=== PATIENT | male | born 1950 | race African-American/Black ===

== ENCOUNTER 2018-03-31 10:15 | Inpatient (IN) | payer MEDICAID, MEDICARE ==
[~2018-03-31] VITALS: Ht 182.9 cm; Wt 99.8 kg
[~2018-03-31 10:15] MED LIST: ASPI-1158 PO; ATEN-42 MT; GEMF600T4 MT; HYDR-2510 PO
[2018-03-31 11:45] LABS: CLARITY URINE TURBID (CLEAR); COLOR URINE YELLOW (YELLOW); KETONES URINE NEGATIVE (NEGATIVE); LEUKOCYTE ESTERASE URINE 3+ (NEGATIVE); NITRITE URINE NEGATIVE (NEGATIVE); OCCULT BLOOD URINE 2+ (NEGATIVE); PROTEIN URINE 2+ (NEGATIVE); SPECIFIC GRAVITY URINE 1.012 (1.005-1.030); UROBILINOGEN URINE 0.2 E.U./dL (0.2-1.0)
[2018-03-31] MEDS ORDERED: MORPHINE SULFATE 4 MG/ML CPJ (NOT FOR IM USE) IV STA (11:51)
[2018-03-31] MEDS ORDERED: ONDANSETRON HCL 4MG/2ML INJ IV STA (11:51)
[2018-03-31] MEDS ORDERED: SODIUM CHLORIDE 0.9% 1000ML BAG (SEPSIS BOLUS) IV ONE (12:00)
[2018-03-31] MEDS ORDERED: CEFTRIAXONE 1 G PREMIX 50 ML IV ONE (12:00)
[2018-03-31 12:53] LABS: HEMATOCRIT. 39.9 % (42.0-52.0); HEMOGLOBIN. 13.8 g/dL (14.0-18.0); MEAN CORPUSCULAR HEMOGLOBIN 31.5 pg (28.0-32.0); MEAN CORPUSCULAR VOLUME 90.9 fL (80.0-94.0); MEAN PLATELET VOLUME 9.5 fl (7.4-10.4); PLATELET 182 x1000/uL (130-400); RED BLOOD CELL COUNT 4.39 mill/uL (4.7-6.1); RED CELL DISTRIBUTION WIDTH 13.4 % (11.6-14.6)
[2018-03-31 12:59] LABS: CHLORIDE 93 mEq/L (98-107)
[2018-03-31] MEDS ORDERED: FUROSEMIDE 20MG/2ML VIAL IVP ONE (13:00)
[2018-03-31 13:03] LABS: PARTIAL THROMBOPLASTIN TIME 33.8 sec (23.4-31.0); PROTHROMBIN TIME 10.4 sec (9.1-11.1)
[2018-03-31 13:31] LABS: PLATELET ESTIMATE NORMAL
[2018-03-31] MEDS ORDERED: POTASSIUM CHLORIDE 20MEQ TABLET SR PO ONE (14:15)
[2018-03-31] MEDS ORDERED: LEVOFLOXACIN 250MG PREMIX 50 ML IV ONE (14:45)
[2018-03-31] MEDS ORDERED: ONDANSETRON HCL 4MG/2ML INJ IV PRN (15:30)
[2018-03-31] MEDS ORDERED: DEXTROSE 50% WATER 50ML SYRINGE IV PRN (15:30)
[2018-03-31] MEDS ORDERED: AMLODIPINE 5MG TABLET PO NR (15:44)
[2018-03-31 16:42] VITALS: BP 147/76
[2018-03-31] MEDS: INSULIN LISPRO 100 UNITS/ML SUBCUT SCH ×2 (17:45→21:00)
[2018-03-31] MEDS: BLOOD SUGAR DIAGNOSTIC STRIP TEST SCH ×2 (17:45→21:00)
[2018-03-31 18:00] VITALS: BP 123/83
[2018-03-31] MEDS: SODIUM CHLORIDE 0.9% 1,000 ML IV SCH (18:16)
[2018-03-31] MEDS: HYDROCODONE/ACETAMINOPHEN 5/325MG TABLET PO PRN (18:26)
[2018-03-31] MEDS: ZOLPIDEM TARTRATE 5MG TABLET PO PRN (21:16)
[2018-03-31] MEDS: AMLODIPINE 5MG TABLET PO SCH (21:17)
[2018-03-31] MEDS: ENOXAPARIN 30MG/0.3ML SYR SUBCUT SCH (21:26)
[2018-03-31 22:00] VITALS: BP 138/59
[2018-04-01] VITALS (13 sets, daily range): BP systolic 103–164; BP diastolic 59–85
[2018-04-01] MEDS: SODIUM CHLORIDE 0.9% 1,000 ML IV SCH ×2 (02:12→16:27)
[2018-04-01] MEDS: HYDROCODONE/ACETAMINOPHEN 5/325MG TABLET PO PRN ×3 (06:23→18:47)
[2018-04-01] MEDS: ACETAMINOPHEN 325MG TABLET PO PRN ×2 (06:24→20:44)
[2018-04-01 06:34] LABS: HEMATOCRIT. 37.1 % (42.0-52.0); HEMOGLOBIN. 12.6 g/dL (14.0-18.0); MEAN CORPUSCULAR HEMOGLOBIN 30.8 pg (28.0-32.0); MEAN CORPUSCULAR VOLUME 90.8 fL (80.0-94.0); MEAN PLATELET VOLUME 9.2 fl (7.4-10.4); PLATELET 190 x1000/uL (130-400); RED BLOOD CELL COUNT 4.08 mill/uL (4.7-6.1); RED CELL DISTRIBUTION WIDTH 13.5 % (11.6-14.6)
[2018-04-01] MEDS: BLOOD SUGAR DIAGNOSTIC STRIP TEST SCH ×4 (07:30→20:45)
[2018-04-01] MEDS: INSULIN LISPRO 100 UNITS/ML SUBCUT SCH ×4 (08:00→21:00)
[2018-04-01] MEDS: ENOXAPARIN 30MG/0.3ML SYR SUBCUT SCH ×2 (09:38→20:45)
[2018-04-01] MEDS: AMLODIPINE 5MG TABLET PO SCH ×2 (09:39→20:44)
[2018-04-01 09:49] LABS: PLATELET ESTIMATE NORMAL
[2018-04-01] MEDS ORDERED: CEFTRIAXONE 1 G PREMIX 50 ML IV SCH (12:00)
[2018-04-01] MEDS: FUROSEMIDE 40MG TABLET PO SCH (17:29)
[2018-04-01] MEDS: ZOLPIDEM TARTRATE 5MG TABLET PO PRN (20:44)
[2018-04-02] VITALS (9 sets, daily range): BP systolic 124–152; BP diastolic 38–82
[2018-04-02] MEDS: HYDROCODONE/ACETAMINOPHEN 5/325MG TABLET PO PRN ×2 (02:54→06:23)
[2018-04-02 06:09] LABS: BASOPHILS % 0.2 % (0.0-2.0); EOSINOPHILS % 0.8 % (0.0-5.0); HEMATOCRIT. 37.1 % (42.0-52.0); HEMOGLOBIN. 12.9 g/dL (14.0-18.0); LYMPHOCYTES % 13.3 % (20.0-50.0); MEAN CORPUSCULAR HEMOGLOBIN 31.7 pg (28.0-32.0); MEAN CORPUSCULAR VOLUME 91.4 fL (80.0-94.0); MONOCYTES % 8.1 % (2.0-8.0); NEUTROPHILS % 77.6 % (40.0-76.0); PLATELET 225 x1000/uL (130-400); RED BLOOD CELL COUNT 4.06 mill/uL (4.7-6.1); RED CELL DISTRIBUTION WIDTH 13.5 % (11.6-14.6)
[2018-04-02] MEDS ORDERED: HYDROCODONE/ACETAMINOPHEN 5/325MG TABLET PO PRN (06:15)
[2018-04-02] MEDS: BLOOD SUGAR DIAGNOSTIC STRIP TEST SCH ×2 (06:23→13:12)
[2018-04-02] MEDS: SODIUM CHLORIDE 0.9% 1,000 ML IV SCH (06:28)
[2018-04-02 06:44] LABS: CHLORIDE 101 mEq/L (98-107)
[2018-04-02] MEDS: INSULIN LISPRO 100 UNITS/ML SUBCUT SCH ×2 (07:58→13:00)
[2018-04-02] MEDS: FUROSEMIDE 40MG TABLET PO SCH (08:01)
[2018-04-02] MEDS: AMLODIPINE 5MG TABLET PO SCH (08:01)
[2018-04-02] MEDS: ENOXAPARIN 30MG/0.3ML SYR SUBCUT SCH (08:01)
[2018-04-02] MEDS ORDERED: CEFTRIAXONE 1 G PREMIX 50 ML IV SCH (12:30)
== END 2018-04-02 15:50 | disposition home or self-care (01) | DRG 871 ==
LOC: ER 11:08 → 5EST 14:33 → EDBEDREQ 14:33 → ENRESERV 15:49
PROVIDERS: ADMIT Internal Medicine; ATTEND Internal Medicine
DX: A41.51 Sepsis due to Escherichia coli [E. coli] (principal); I50.43 Acute on chronic combined systolic (congestive) and diastolic (congestive) heart failure; N17.0 Acute kidney failure with tubular necrosis; R65.21 Severe sepsis with septic shock; N39.0 Urinary tract infection, site not specified; E87.1 Hypo-osmolality and hyponatremia; E44.0 Moderate protein-calorie malnutrition; I42.9 Cardiomyopathy, unspecified; E87.6 Hypokalemia; E78.5 Hyperlipidemia, unspecified; M47.892 Other spondylosis, cervical region; E11.9 Type 2 diabetes mellitus without complications; I11.0 Hypertensive heart disease with heart failure; J32.0 Chronic maxillary sinusitis; M48.02 Spinal stenosis, cervical region; E87.8 Other disorders of electrolyte and fluid balance, not elsewhere classified; N20.0 Calculus of kidney; Z79.82 Long term (current) use of aspirin; Z79.899 Other long term (current) drug therapy; Z90.49 Acquired absence of other specified parts of digestive tract; Z68.29 Body mass index [BMI] 29.0-29.9, adult
CPT/HCPCS: 36415; 71045; 74176; 80048; 82962; 83036; 83605; 83880; 84145; 84484; 86850; 86900; 87077; 87186; 93005; 93306; 93970; 96365; 96366; 96375; 99291; J0696; J1650; J1940; J1956; J2270; J2405; J7030; J7050

== ENCOUNTER 2020-09-12 16:43 | Emergency (ER) | payer MEDICARE, OTHER ==
[~2020-09-12] VITALS: Ht 182.9 cm; Wt 100.0 kg
[~2020-09-12 16:43] MED LIST changes: -ASPI-1158 PO; +ASPI-1406 PO; -GEMF600T4 MT; +GEMF600T90 MT; -HYDR-2510 PO
[2020-09-12 17:55] LABS: CLARITY URINE CLEAR (CLEAR); COLOR URINE YELLOW (YELLOW); KETONES URINE NEGATIVE (NEGATIVE); LEUKOCYTE ESTERASE URINE 2+ (NEGATIVE); NITRITE URINE NEGATIVE (NEGATIVE); OCCULT BLOOD URINE NEGATIVE (NEGATIVE); PH URINE 6.5 (4.5-8.0); PROTEIN URINE NEGATIVE (NEGATIVE); SPECIFIC GRAVITY URINE 1.015 (1.005-1.030); UROBILINOGEN URINE 0.2 E.U./dL (0.2-1.0)
[2020-09-12] MEDS ORDERED: CIPR-263 MT (18:54)
[2020-09-12 19:02] VITALS: BP 140/80
== END 2020-09-12 20:00 | disposition home or self-care (01) ==
LOC: ER 19:38
DX: N30.90 Cystitis, unspecified without hematuria (principal); E78.00 Pure hypercholesterolemia, unspecified; I11.0 Hypertensive heart disease with heart failure; I50.9 Heart failure, unspecified; Z90.49 Acquired absence of other specified parts of digestive tract
CPT/HCPCS: 81003; 99282; A4315

== ENCOUNTER 2021-02-02 08:23 | Inpatient (IN) | payer MEDICARE ==
[~2021-02-02] VITALS: Ht 182.9 cm; Wt 100.0 kg
[~2021-02-02 08:23] MED LIST changes: +CIPR-263 MT
[2021-02-02] MEDS ORDERED: MORPHINE SULFATE 4 MG/ML CPJ (NOT FOR IM USE) IV STA (08:53)
[2021-02-02] MEDS ORDERED: SODIUM CHLORIDE 0.9% 1,000 ML IV ONE (09:00)
[2021-02-02 10:10] LABS: BASOPHILS % 0.4 % (0.0-2.0); EOSINOPHILS % 1.8 % (0.0-5.0); HEMATOCRIT. 44.7 % (42.0-52.0); HEMOGLOBIN. 14.8 g/dL (14.0-18.0); LYMPHOCYTES % 40.2 % (20.0-50.0); MEAN CORPUSCULAR HEMOGLOBIN 30.6 pg (28.0-32.0); MEAN CORPUSCULAR VOLUME 92.6 fL (80.0-94.0); MEAN PLATELET VOLUME 8.2 fl (7.4-10.4); MONOCYTES % 9.3 % (2.0-8.0); NEUTROPHILS % 48.3 % (40.0-76.0); PLATELET 268 x1000/uL (130-400); RED BLOOD CELL COUNT 4.83 mill/uL (4.7-6.1); RED CELL DISTRIBUTION WIDTH 13.2 % (11.6-14.6)
[2021-02-02 10:18] LABS: CHLORIDE 102 mEq/L (98-107)
[2021-02-02 10:50] LABS: ETHANOL BLOOD < 10 mg/dL
[2021-02-02] MEDS ORDERED: IOHEXOL-300 100 ML BOTTLE ONE (11:07)
[2021-02-02] MEDS ORDERED: MORPHINE SULFATE 4 MG/ML CPJ (NOT FOR IM USE) IV ONE (11:45)
[2021-02-02] MEDS ORDERED: ONDANSETRON HCL 4MG/2ML INJ IV PRN (18:15)
[2021-02-02] MEDS ORDERED: IPRATROPIUM/ALBUTEROL 0.5-3(2.5)MG/3ML NEB HHN PRN (18:15)
[2021-02-02] MEDS ORDERED: LORAZEPAM 0.5MG TABLET PO PRN (18:15)
[2021-02-02] MEDS ORDERED: NALOXONE HCL 0.4MG/ML VIAL IV PRN (18:30)
[2021-02-02] MEDS: MORPHINE SULFATE 2 MG/ML CPJ (NOT FOR IM USE) IV PRN (21:28)
[2021-02-02 23:20] VITALS: BP 145/80
[2021-02-03] MEDS ORDERED: T3 PO (01:24)
[2021-02-03] MEDS ORDERED: HYDR25TA PO (01:24)
[2021-02-03 06:39] LABS: BASOPHILS % 0.4 % (0.0-2.0); EOSINOPHILS % 2.9 % (0.0-5.0); HEMATOCRIT. 42.9 % (42.0-52.0); HEMOGLOBIN. 14.3 g/dL (14.0-18.0); LYMPHOCYTES % 34.1 % (20.0-50.0); MEAN CORPUSCULAR HEMOGLOBIN 30.6 pg (28.0-32.0); MEAN CORPUSCULAR VOLUME 91.6 fL (80.0-94.0); MEAN PLATELET VOLUME 8.4 fl (7.4-10.4); MONOCYTES % 9.6 % (2.0-8.0); PLATELET 237 x1000/uL (130-400); RED BLOOD CELL COUNT 4.68 mill/uL (4.7-6.1)
[2021-02-03 06:58] LABS: CHLORIDE 104 mEq/L (98-107)
[2021-02-03 08:00] VITALS: BP 151/67
[2021-02-03 11:30] LABS: AMYLASE 82 IU/L (25-115)
[2021-02-03] MEDS: LACTATED RINGERS 1,000 ML IV SCH (11:47)
[2021-02-03] MEDS: TAMSULOSIN HCL 0.4MG SR CAPSULE PO SCH (11:47)
[2021-02-03 12:00] VITALS: BP 120/78
[2021-02-03] MEDS: MORPHINE SULFATE 2 MG/ML CPJ (NOT FOR IM USE) IV PRN ×2 (12:12→17:00)
[2021-02-03] MEDS: AMLODIPINE 2.5MG TABLET PO SCH (13:34)
[2021-02-03 16:00] VITALS: BP 152/76
[2021-02-03 20:00] VITALS: BP 172/76
[2021-02-04] VITALS: BP 145/71
[2021-02-04 04:00] VITALS: BP 151/70
[2021-02-04 07:59] LABS: BASOPHILS % 0.3 % (0.0-2.0); HEMATOCRIT. 43.1 % (42.0-52.0); HEMOGLOBIN. 14.7 g/dL (14.0-18.0); LYMPHOCYTES % 32.9 % (20.0-50.0); MEAN CORPUSCULAR HEMOGLOBIN 30.6 pg (28.0-32.0); MEAN CORPUSCULAR VOLUME 90.1 fL (80.0-94.0); MEAN PLATELET VOLUME 8.6 fl (7.4-10.4); NEUTROPHILS % 56.8 % (40.0-76.0); PLATELET 250 x1000/uL (130-400); RED BLOOD CELL COUNT 4.78 mill/uL (4.7-6.1); RED CELL DISTRIBUTION WIDTH 12.9 % (11.6-14.6)
[2021-02-04 08:00] VITALS: BP 155/89
[2021-02-04 08:04] LABS: CHLORIDE 104 mEq/L (98-107)
[2021-02-04 08:12] LABS: AMYLASE 54 IU/L (25-115)
[2021-02-04] MEDS: TAMSULOSIN HCL 0.4MG SR CAPSULE PO SCH (08:50)
[2021-02-04] MEDS: AMLODIPINE 2.5MG TABLET PO SCH (08:50)
[2021-02-04] MEDS: LACTATED RINGERS 1,000 ML IV SCH (08:57)
[2021-02-04] MEDS: MORPHINE SULFATE 2 MG/ML CPJ (NOT FOR IM USE) IV PRN (08:58)
[2021-02-04 12:00] VITALS: BP 165/74
[2021-02-04] MEDS ORDERED: TAMS-11 PO (13:24)
== END 2021-02-04 16:00 | disposition home or self-care (01) | DRG 440 ==
LOC: ER 08:23 → 8WST 16:43 → ENRESERV 18:05 → 8WST 23:03
PROVIDERS: ADMIT Internal Medicine; ATTEND Internal Medicine
DX: K85.90 Acute pancreatitis without necrosis or infection, unspecified (principal); K57.90 Diverticulosis of intestine, part unspecified, without perforation or abscess without bleeding; N20.0 Calculus of kidney; F17.210 Nicotine dependence, cigarettes, uncomplicated; K59.00 Constipation, unspecified; Z20.822 Contact with and (suspected) exposure to COVID-19; N40.0 Benign prostatic hyperplasia without lower urinary tract symptoms; I50.9 Heart failure, unspecified; E78.00 Pure hypercholesterolemia, unspecified; I11.0 Hypertensive heart disease with heart failure; Z90.49 Acquired absence of other specified parts of digestive tract; Z82.49 Family history of ischemic heart disease and other diseases of the circulatory system; Z79.899 Other long term (current) drug therapy; Z87.01 Personal history of pneumonia (recurrent); F10.10 Alcohol abuse, uncomplicated; Z71.41 Alcohol abuse counseling and surveillance of alcoholic
CPT/HCPCS: 36415; 74177; 80048; 80053; 80320; 82150; 83605; 84153; 85025; 87426; 93005; 99285; J2270; J2405; J7030; J7120; Q9967; G0103; G0480

== ENCOUNTER 2021-04-13 14:10 | Emergency (ER) | payer BC, MEDICARE ==
[~2021-04-13] VITALS: Ht 182.9 cm; Wt 97.0 kg
[~2021-04-13 14:10] MED LIST changes: -CIPR-263 MT; +HYDR25TA PO; +T3 PO; +TAMS-11 PO
[2021-04-13 14:52] VITALS: BP 159/75
[2021-04-13] MEDS ORDERED: T3 PO (14:52)
== END 2021-04-13 15:45 | disposition home or self-care (01) ==
LOC: ER 14:10
DX: M25.511 Pain in right shoulder (principal)
CPT/HCPCS: 73030; 99283

== ENCOUNTER 2021-11-02 11:07 | Inpatient (IN) | payer MEDICARE ==
[~2021-11-02] VITALS: Ht 182.9 cm; Wt 96.2 kg
[2021-11-02] MEDS ORDERED: ONDANSETRON HCL 4MG/2ML INJ IV STA (12:24)
[2021-11-02] MEDS ORDERED: MORPHINE SULFATE 4 MG/ML CPJ (NOT FOR IM USE) IV STA (12:24)
[2021-11-02] MEDS ORDERED: SODIUM CHLORIDE 0.9% 1,000 ML IV ONE (12:30)
[2021-11-02 13:27] LABS: BASOPHILS % 0.1 % (0.0-2.0); EOSINOPHILS % 0.2 % (0.0-5.0); HEMOGLOBIN. 14.3 g/dL (14.0-18.0); MEAN CORPUSCULAR HEMOGLOBIN 31.5 pg (28.0-32.0); MEAN CORPUSCULAR VOLUME 94.7 fL (80.0-94.0); MEAN PLATELET VOLUME 8.5 fl (7.4-10.4); NEUTROPHILS % 85.7 % (40.0-76.0); PLATELET 293 x1000/uL (130-400); RED BLOOD CELL COUNT 4.54 mill/uL (4.7-6.1)
[2021-11-02 13:35] LABS: CHLORIDE 96 mEq/L (98-107)
[2021-11-02] MEDS ORDERED: ASPIRIN 325MG EC TABLET PO ONE (16:00)
[2021-11-02] MEDS ORDERED: LEVOFLOXACIN 750MG PREMIX 150 ML IV ONE (16:00)
[2021-11-02] MEDS ORDERED: MORPHINE SULFATE 4 MG/ML CPJ (NOT FOR IM USE) IV ONE (16:15)
[2021-11-02] MEDS ORDERED: FUROSEMIDE 40MG/4ML VIAL IVP ONE (16:30)
[2021-11-02] MEDS ORDERED: DIPHENHYDRAMINE 50MG/ML VIAL IV PRN (17:15)
[2021-11-02] MEDS ORDERED: IPRATROPIUM/ALBUTEROL 0.5-3(2.5)MG/3ML NEB HHN PRN (17:15)
[2021-11-02] MEDS ORDERED: ACETAMINOPHEN 325MG TABLET PO PRN (17:15)
[2021-11-02] MEDS ORDERED: ONDANSETRON HCL 4MG/2ML INJ IV PRN (17:15)
[2021-11-02] MEDS ORDERED: CEFTRIAXONE 1 G PREMIX 50 ML IV SCH (17:30)
[2021-11-02] MEDS ORDERED: AZITHROMYCIN 500 MG TABLET PO NR ×2 (17:30→20:30)
[2021-11-02] MEDS ORDERED: CLONIDINE 0.1MG TABLET PO PRN (17:30)
[2021-11-02 17:31] LABS: CLARITY URINE CLEAR (CLEAR); COLOR URINE YELLOW (YELLOW); KETONES URINE NEGATIVE (NEGATIVE); LEUKOCYTE ESTERASE URINE 1+ (NEGATIVE); NITRITE URINE POSITIVE (NEGATIVE); OCCULT BLOOD URINE TRACE (NEGATIVE); PROTEIN URINE NEGATIVE (NEGATIVE); SPECIFIC GRAVITY URINE 1.007 (1.005-1.030); UROBILINOGEN URINE 0.2 E.U./dL (0.2-1.0)
[2021-11-02 20:00] VITALS: BP 110/68
[2021-11-02] MEDS: CEFTRIAXONE 1,000 MG in DEXTROSE 5% WATER 50 ML IV SCH (21:46)
[2021-11-02] MEDS: MORPHINE SULFATE 2 MG/ML CPJ (NOT FOR IM USE) IV PRN (21:57)
[2021-11-02 22:48] VITALS: BP 100/66
[2021-11-02] MEDS ORDERED: NALOXONE HCL 0.4MG/ML VIAL IV PRN (23:15)
[2021-11-03] VITALS: BP 134/69
[2021-11-03 04:00] VITALS: BP 126/65
[2021-11-03 08:00] VITALS: BP 127/69
[2021-11-03 08:50] LABS: HEMATOCRIT. 38.3 % (42.0-52.0); HEMOGLOBIN. 13.2 g/dL (14.0-18.0); MEAN CORPUSCULAR HEMOGLOBIN 32.1 pg (28.0-32.0); MEAN PLATELET VOLUME 8.5 fl (7.4-10.4); PLATELET 264 x1000/uL (130-400); RED BLOOD CELL COUNT 4.12 mill/uL (4.7-6.1); RED CELL DISTRIBUTION WIDTH 13.7 % (11.6-14.6)
[2021-11-03] MEDS: MORPHINE SULFATE 2 MG/ML CPJ (NOT FOR IM USE) IV PRN (08:57)
[2021-11-03 09:15] LABS: CHLORIDE 95 mEq/L (98-107)
[2021-11-03] MEDS ORDERED: LACTULOSE 20G/30ML UDC PO NR (11:15)
[2021-11-03] MEDS: MORPHINE SULFATE 4 MG/ML CPJ (NOT FOR IM USE) IV PRN (11:50)
[2021-11-03 11:56] VITALS: BP 151/82
[2021-11-03 13:43] LABS: PLATELET ESTIMATE NORMAL
[2021-11-03 16:00] VITALS: BP 125/60
[2021-11-03 20:30] VITALS: BP 106/61
[2021-11-03] MEDS: CEFTRIAXONE 1,000 MG in DEXTROSE 5% WATER 50 ML IV SCH (21:08)
[2021-11-04] VITALS: BP 110/66
[2021-11-04 04:00] VITALS: BP 136/54
[2021-11-04 08:00] VITALS: BP 146/71
[2021-11-04] MEDS ORDERED: NA PHOS,M-B/NA PHOS,DI-BA ENEMA 118ML PR NR ×2 (11:00→11:15)
[2021-11-04] MEDS ORDERED: NA PHOS,M-B/NA PHOS,DI-BA ENEMA 118ML PR ONE (11:00)
[2021-11-04] MEDS: MORPHINE SULFATE 4 MG/ML CPJ (NOT FOR IM USE) IV PRN ×2 (11:56→20:58)
[2021-11-04 12:00] VITALS: BP 158/70
[2021-11-04 16:00] VITALS: BP 146/72
[2021-11-04 20:00] VITALS: BP 141/72
[2021-11-04] MEDS: CEFTRIAXONE 1,000 MG in DEXTROSE 5% WATER 50 ML IV SCH (20:57)
[2021-11-05] VITALS: BP 148/70
[2021-11-05] MEDS: MORPHINE SULFATE 4 MG/ML CPJ (NOT FOR IM USE) IV PRN ×4 (02:37→19:03)
[2021-11-05 04:00] VITALS: BP 155/76
[2021-11-05 06:52] LABS: BASOPHILS % 0.1 % (0.0-2.0); EOSINOPHILS % 0.7 % (0.0-5.0); HEMATOCRIT. 38.2 % (42.0-52.0); HEMOGLOBIN. 12.9 g/dL (14.0-18.0); MEAN CORPUSCULAR HEMOGLOBIN 31.8 pg (28.0-32.0); MEAN CORPUSCULAR VOLUME 94.2 fL (80.0-94.0); MEAN PLATELET VOLUME 8.5 fl (7.4-10.4); MONOCYTES % 5.9 % (2.0-8.0); NEUTROPHILS % 80.3 % (40.0-76.0); PLATELET 267 x1000/uL (130-400); RED BLOOD CELL COUNT 4.06 mill/uL (4.7-6.1); RED CELL DISTRIBUTION WIDTH 13.3 % (11.6-14.6)
[2021-11-05 07:51] LABS: CHLORIDE 96 mEq/L (98-107)
[2021-11-05 08:00] VITALS: BP 128/56
[2021-11-05 12:00] VITALS: BP 164/82
[2021-11-05] MEDS: FUROSEMIDE 40MG/4ML VIAL IVP SCH (12:56)
[2021-11-05] MEDS: MEROPENEM 1,000 MG in SODIUM CHLORIDE 0.9% 100 ML IV SCH ×2 (15:33→22:11)
[2021-11-05 16:00] VITALS: BP 139/64
[2021-11-05 20:00] VITALS: BP 136/77
[2021-11-06] VITALS: BP 132/75
[2021-11-06 04:00] VITALS: BP 159/70
[2021-11-06 04:07] LABS: NEISSERIA GONORRHOEAE NAA Negative (Negative)
[2021-11-06] MEDS: MORPHINE SULFATE 4 MG/ML CPJ (NOT FOR IM USE) IV PRN ×3 (04:44→23:01)
[2021-11-06] MEDS: MEROPENEM 1,000 MG in SODIUM CHLORIDE 0.9% 100 ML IV SCH ×3 (05:38→21:56)
[2021-11-06 06:26] LABS: BASOPHILS % 0.2 % (0.0-2.0); EOSINOPHILS % 1.6 % (0.0-5.0); HEMATOCRIT. 37.9 % (42.0-52.0); HEMOGLOBIN. 12.7 g/dL (14.0-18.0); LYMPHOCYTES % 14.8 % (20.0-50.0); MEAN CORPUSCULAR HEMOGLOBIN 31.4 pg (28.0-32.0); MEAN CORPUSCULAR VOLUME 93.9 fL (80.0-94.0); MEAN PLATELET VOLUME 8.9 fl (7.4-10.4); MONOCYTES % 8.9 % (2.0-8.0); NEUTROPHILS % 74.5 % (40.0-76.0); PLATELET 303 x1000/uL (130-400); RED BLOOD CELL COUNT 4.03 mill/uL (4.7-6.1); RED CELL DISTRIBUTION WIDTH 13.3 % (11.6-14.6)
[2021-11-06 06:43] LABS: CHLORIDE 96 mEq/L (98-107)
[2021-11-06 08:00] VITALS: BP 143/69
[2021-11-06] MEDS ORDERED: POTASSIUM CHLORIDE 20MEQ TABLET SR PO NR (09:00)
[2021-11-06] MEDS: FUROSEMIDE 40MG/4ML VIAL IVP SCH (09:03)
[2021-11-06 12:00] VITALS: BP 137/41
[2021-11-06] MEDS: TAMSULOSIN HCL 0.4MG SR CAPSULE PO SCH (13:08)
[2021-11-06] MEDS: MAGNESIUM HYDROXIDE 400MG/5ML 30ML UDC PO SCH (13:09)
[2021-11-06] MEDS ORDERED: SULF1TAB44 MT (13:16)
[2021-11-06 16:00] VITALS: BP 132/68
[2021-11-06 20:00] VITALS: BP 135/50
[2021-11-06] MEDS: OXYCODONE HCL/ACETAMINOPHEN 5/325MG TABLET PO PRN (22:02)
[2021-11-07] VITALS: BP 127/75
[2021-11-07 04:00] VITALS: BP 129/54
[2021-11-07] MEDS: MEROPENEM 1,000 MG in SODIUM CHLORIDE 0.9% 100 ML IV SCH ×2 (05:07→14:00)
[2021-11-07] MEDS: MORPHINE SULFATE 4 MG/ML CPJ (NOT FOR IM USE) IV PRN ×2 (05:13→10:54)
[2021-11-07 05:56] LABS: CHLORIDE 98 mEq/L (98-107)
[2021-11-07 06:24] LABS: BASOPHILS % 0.3 % (0.0-2.0); HEMOGLOBIN. 12.5 g/dL (14.0-18.0); LYMPHOCYTES % 19.6 % (20.0-50.0); MEAN CORPUSCULAR HEMOGLOBIN 31.8 pg (28.0-32.0); MEAN CORPUSCULAR VOLUME 93.8 fL (80.0-94.0); MEAN PLATELET VOLUME 8.5 fl (7.4-10.4); MONOCYTES % 9.4 % (2.0-8.0); NEUTROPHILS % 68.7 % (40.0-76.0); PLATELET 301 x1000/uL (130-400); RED BLOOD CELL COUNT 3.95 mill/uL (4.7-6.1); RED CELL DISTRIBUTION WIDTH 13.1 % (11.6-14.6)
[2021-11-07 08:00] VITALS: BP 128/66
[2021-11-07] MEDS: TAMSULOSIN HCL 0.4MG SR CAPSULE PO SCH (10:22)
[2021-11-07] MEDS: FUROSEMIDE 40MG/4ML VIAL IVP SCH (10:23)
[2021-11-07] MEDS: MAGNESIUM HYDROXIDE 400MG/5ML 30ML UDC PO SCH (10:23)
[2021-11-07] MEDS: OXYCODONE HCL/ACETAMINOPHEN 5/325MG TABLET PO PRN (10:47)
[2021-11-07] MEDS ORDERED: T3 PO (11:12)
[2021-11-07 12:00] VITALS: BP 99/64
== END 2021-11-07 15:50 | disposition home or self-care (01) | DRG 872 ==
LOC: ER 11:07 → 7WST 16:20 → EDBEDREQ 16:36 → EDBEDREQTM 16:36
PROVIDERS: ADMIT Internal Medicine; ATTEND Internal Medicine
DX: A41.9 Sepsis, unspecified organism (principal); N20.2 Calculus of kidney with calculus of ureter; N39.0 Urinary tract infection, site not specified; N45.3 Epididymo-orchitis; B96.20 Unspecified Escherichia coli [E. coli] as the cause of diseases classified elsewhere; I11.0 Hypertensive heart disease with heart failure; K57.90 Diverticulosis of intestine, part unspecified, without perforation or abscess without bleeding; K40.90 Unilateral inguinal hernia, without obstruction or gangrene, not specified as recurrent; I50.9 Heart failure, unspecified; E78.00 Pure hypercholesterolemia, unspecified; K59.00 Constipation, unspecified; N32.0 Bladder-neck obstruction; I45.10 Unspecified right bundle-branch block; D72.829 Elevated white blood cell count, unspecified; R77.8 Other specified abnormalities of plasma proteins; E78.5 Hyperlipidemia, unspecified; F17.200 Nicotine dependence, unspecified, uncomplicated; Z79.899 Other long term (current) drug therapy; Z82.49 Family history of ischemic heart disease and other diseases of the circulatory system; Z90.49 Acquired absence of other specified parts of digestive tract
CPT/HCPCS: 36415; 71045; 74018; 74176; 76870; 80048; 80053; 81003; 83735; 83880; 84145; 84484; 85025; 87077; 87186; 87491; 87591; 93005; 93306; 93970; 93976; 99285; J0696; J1940; J1956; J2185; J2270; J2405; J7030; J7050; J7060

== ENCOUNTER 2022-12-13 09:21 | Emergency (ER) | payer MEDICARE ==
[~2022-12-13] VITALS: Ht 182.9 cm; Wt 118.0 kg
[~2022-12-13 09:21] MED LIST changes: +SULF1TAB44 MT
[2022-12-13 09:28] VITALS: BP 175/82; PULSE 108; RESP 18; TEMP 98.5; O2SAT 100
[2022-12-13] MEDS ORDERED: TETRACAINE 0.5% OPHTH DROPS 4ML LEFTEYE ONE (11:45)
[2022-12-13] MEDS ORDERED: FLUORESCEIN SODIUM 1MG/STRIP RIGHTEYE ONE (11:45)
[2022-12-13] MEDS ORDERED: CIPR2.5D17 RIGHTEYE (15:04)
[2022-12-13] MEDS ORDERED: TAMSULOSIN HCL 0.4MG SR CAPSULE PO SCH (15:15)
[2022-12-13] MEDS ORDERED: HYDROCHLOROTHIAZIDE 25MG TABLET PO ONE (15:15)
[2022-12-13] MEDS ORDERED: ATENOLOL 25MG TABLET PO ONE (15:15)
[2022-12-13] MEDS ORDERED: ASPIRIN 81MG TABLET PO ONE (15:15)
[2022-12-13] MEDS ORDERED: GEMF600T90 MT (16:07)
[2022-12-13] MEDS ORDERED: HYDR25TA PO (16:07)
[2022-12-13] MEDS ORDERED: ATEN-42 MT (16:07)
[2022-12-13] MEDS ORDERED: TAMS-11 PO (16:07)
[2022-12-13] MEDS ORDERED: ASPI-1406 PO (16:07)
== END 2022-12-13 16:31 | disposition home or self-care (01) ==
LOC: ER 09:21
DX: H53.8 Other visual disturbances (principal); I11.0 Hypertensive heart disease with heart failure; I50.9 Heart failure, unspecified; E78.00 Pure hypercholesterolemia, unspecified; Z90.49 Acquired absence of other specified parts of digestive tract
CPT/HCPCS: 70480; 76512; 99291

== ENCOUNTER 2023-10-12 19:00 | Inpatient (IN) | payer MEDICARE ==
[~2023-10-12] VITALS: Ht 177.8 cm; Wt 92.8 kg
[~2023-10-12 19:00] MED LIST changes: +CIPR2.5D17 RIGHTEYE
[2023-10-12 19:52] LABS: BASOPHILS % 0.5 % (0.0-2.0); CHLORIDE 107 mEq/L (98-107); EOSINOPHILS % 2.9 % (0.0-5.0); HEMATOCRIT. 39.1 % (42.0-52.0); LYMPHOCYTES % 40.6 % (20.0-50.0); MEAN CORPUSCULAR HEMOGLOBIN 31.9 pg (28.0-32.0); MEAN CORPUSCULAR HGB CONC 33.1 g/dL (31.0-37.0); MEAN CORPUSCULAR VOLUME 96.3 fL (80.0-94.0); MEAN PLATELET VOLUME 8.5 fl (7.4-10.4); MONOCYTES % 9.3 % (2.0-8.0); NEUTROPHILS % 46.7 % (40.0-76.0); PLATELET 190 x1000/uL (130-400); POTASSIUM 3.8 mEq/L (3.5-5.1); RED BLOOD CELL COUNT 4.06 mill/uL (4.7-6.1); RED CELL DISTRIBUTION WIDTH 14.2 % (11.6-14.6); SODIUM 138 mEq/L (136-145); WHITE BLOOD COUNT 7.4 x1000/uL (4.5-11.0)
[2023-10-12 19:53] LABS: CALCIUM 8.9 mg/dL (8.7-10.4); CARBON DIOXIDE 27 mEq/L (21-32)
[2023-10-12 19:58] LABS: CREATININE 1.2 mg/dL (0.6-1.3); GLUCOSE 107 mg/dL (70-105)
[2023-10-12 19:59] LABS: UREA NITROGEN BLOOD 16 mg/dL (9-23)
[2023-10-12 20:00] LABS: ALANINE AMINOTRANSFERASE 29 IU/L (10-49); ALBUMIN 4.1 g/dL (3.2-4.8); ASPARTATE AMINOTRANSFERASE 32 IU/L (<34)
[2023-10-12 20:01] LABS: BILIRUBIN TOTAL 0.4 mg/dL (0.1-1.0); PROTEIN TOTAL 6.9 g/dL (6.0-8.3)
[2023-10-12 20:29] LABS: ETHANOL BLOOD < 10 mg/dL (<10)
[2023-10-12 20:34] LABS: TROPONIN I HIGH SENSITIVITY 243 ng/L (3.0-53)
[2023-10-12 20:57] LABS: CLARITY URINE CLEAR (CLEAR); COLOR URINE YELLOW (YELLOW); GLUCOSE URINE NEGATIVE (NEGATIVE); KETONES URINE NEGATIVE (NEGATIVE); LEUKOCYTE ESTERASE URINE 2+ (NEGATIVE); NITRITE URINE NEGATIVE (NEGATIVE); OCCULT BLOOD URINE TRACE (NEGATIVE); PH URINE 5.5 (4.5-8.0); PROTEIN URINE NEGATIVE (NEGATIVE); SPECIFIC GRAVITY URINE 1.016 (1.005-1.030); UROBILINOGEN URINE 0.2 E.U./dL (0.2-1.0)
[2023-10-12 21:09] LABS: *AMPHETAMINES SCREEN URINE NEGATIVE (NEGATIVE); *BARBITURATES SCREEN URINE NEGATIVE (NEGATIVE); *BENZODIAZEPINES SCREEN URINE NEGATIVE (NEGATIVE); *COCAINE SCREEN URINE PRESUMPTIVE POSITIVE (NEGATIVE); CANNABINOID URINE SCREEN PRESUMPTIVE POSITIVE (NEGATIVE); ECSTASY MDMA SCREEN URINE NEGATIVE (NEGATIVE); METHADONE URINE SCREEN NEGATIVE (NEGATIVE); OPIATES URINE SCREEN NEGATIVE (NEGATIVE); PHENCYCLIDINE URINE SCREEN NEGATIVE (NEGATIVE)
[2023-10-12 21:31] LABS: SQUAMOUS EPITHELIAL CELL URINE 1+ /lpf (RARE/1+)
[2023-10-12 21:34] LABS: BACTERIA URINE 1+; YEAST URINE NONE SEEN
[2023-10-12 22:21] LABS: TROPONIN I HIGH SENSITIVITY 242 ng/L (3.0-53)
[2023-10-12] MEDS: ACETAMINOPHEN 325MG TABLET PO ONE (23:23)
[2023-10-12] MEDS ORDERED: DOCUSATE SODIUM 100MG CAPSULE PO PRN (23:45)
[2023-10-12] MEDS ORDERED: LORAZEPAM 0.5MG TABLET PO PRN (23:45)
[2023-10-12] MEDS ORDERED: ACETAMINOPHEN 325MG TABLET PO PRN (23:45)
[2023-10-12] MEDS ORDERED: GUAIFENESIN 200MG/10ML SUGAR FREE UDC PO PRN (23:45)
[2023-10-12] MEDS ORDERED: ONDANSETRON HCL 4MG/2ML INJ IV PRN (23:45)
[2023-10-12] MEDS ORDERED: IPRATROPIUM/ALBUTEROL 0.5-3(2.5)MG/3ML NEB HHN PRN (23:45)
[2023-10-13 00:02] LABS: TROPONIN I HIGH SENSITIVITY 244 ng/L (3.0-53)
[2023-10-13 00:18] LABS: IRON 41 ug/dL (65-175)
[2023-10-13 00:19] LABS: LDL CHOLESTEROL 106 mg/dL (5-100); TRIGLYCERIDE 167 mg/dL (0-150)
[2023-10-13 00:20] LABS: CHOLESTEROL 179 mg/dL (<200); HDL CHOLESTEROL 48 mg/dL (>55)
[2023-10-13 00:21] LABS: TOTAL IRON BINDING CAPACITY 284 ug/dl (250-425)
[2023-10-13 00:43] LABS: FOLIC ACID (FOLATE) SERUM 15.71 ng/mL (>5.38); THYROID STIMULATING HORMONE 0.96 uIU/mL (0.55-4.78)
[2023-10-13 00:44] LABS: VITAMIN B12 SERUM 621 pg/mL (211-911)
[2023-10-13] MEDS: NICOTINE 7MG PATCH TD SCH (00:54)
[2023-10-13] MEDS: CEFTRIAXONE 1GM/50ML 50 ML IV SCH (01:57)
[2023-10-13 07:18] LABS: CREATINE KINASE MB FRACTION 8.6 ng/mL (0.5-3.6)
[2023-10-13 07:20] LABS: CARBON DIOXIDE 26 mEq/L (21-32); CHLORIDE 108 mEq/L (98-107); POTASSIUM 3.8 mEq/L (3.5-5.1)
[2023-10-13 07:21] LABS: SODIUM 140 mEq/L (136-145)
[2023-10-13 07:26] LABS: CREATININE 0.9 mg/dL (0.6-1.3); GLUCOSE 98 mg/dL (70-105)
[2023-10-13 07:27] LABS: UREA NITROGEN BLOOD 13 mg/dL (9-23)
[2023-10-13 07:29] LABS: PHOSPHORUS 3.8 mg/dL (2.5-4.9)
[2023-10-13] MEDS ORDERED: ACETAMINOPHEN 325MG TABLET PO PRN (07:45)
[2023-10-13 08:25] LABS: HEMATOCRIT 39.7 % (42.0-52.0); HEMOGLOBIN 13.2 g/dL (14.0-18.0); MEAN CORPUSCULAR HEMOGLOBIN 32.2 pg (28.0-32.0); MEAN CORPUSCULAR HGB CONC 33.4 g/dL (31.0-37.0); MEAN CORPUSCULAR VOLUME 96.6 fL (80.0-94.0); PLATELET 182 x1000/uL (130-400); RED BLOOD CELL COUNT 4.11 mill/uL (4.7-6.1); RED CELL DISTRIBUTION WIDTH 14.3 % (11.6-14.6); WHITE BLOOD COUNT 6.2 x1000/uL (4.5-11.0)
[2023-10-13] MEDS: ACETAMINOPHEN 325MG TABLET PO PRN (08:40)
[2023-10-13] MEDS: ASPIRIN 81MG EC TABLET PO SCH (08:41)
[2023-10-13] MEDS: HYDROCHLOROTHIAZIDE 25MG TABLET PO SCH (08:42)
[2023-10-13] MEDS: TAMSULOSIN HCL 0.4MG SR CAPSULE PO SCH (08:42)
[2023-10-13] MEDS: ENOXAPARIN 40MG/0.4ML SYR SUBCUT SCH (08:45)
[2023-10-13] MEDS ORDERED: CIPROFLOXACIN 0.3% OPHTH SOLN 2.5ML RIGHTEYE SCH (09:00)
[2023-10-13] MEDS: GEMFIBROZIL 600MG TABLET PO SCH (10:07)
[2023-10-13] MEDS: LOSARTAN 50 MG TABLET PO SCH (13:20)
[2023-10-13 15:50] VITALS: BP 166/79; PULSE 78; RESP 19; TEMP 36.418
[2023-10-13 15:58] LABS: CREATINE KINASE MB FRACTION 7.1 ng/mL (0.5-3.6)
[2023-10-13 20:00] VITALS: BP 90/72; PULSE 91; RESP 18; TEMP 36.6696; O2SAT 99
[2023-10-13] MEDS: FAMOTIDINE 20MG TABLET PO SCH (20:43)
[2023-10-14] VITALS: BP 170/85; PULSE 88; RESP 20; TEMP 36.72516; O2SAT 97
[2023-10-14] MEDS: CLONIDINE 0.1MG TABLET PO PRN (00:44)
[2023-10-14 04:00] VITALS: BP 144/77; PULSE 74; RESP 20; TEMP 36.3918; O2SAT 97
[2023-10-14 08:00] VITALS: BP 181/98; PULSE 82; RESP 20; TEMP 36.50292; O2SAT 97
[2023-10-14] MEDS ORDERED: PNEUMOCOCCAL 23-VAL P-SAC VAC 0.5ML IM ONE ×2 (09:00→11:30)
[2023-10-14] MEDS: CLOPIDOGREL 75MG TABLET PO SCH (09:57)
[2023-10-14] MEDS: FAMOTIDINE 20MG TABLET PO SCH (09:57)
[2023-10-14 12:00] VITALS: BP 141/69; PULSE 69; RESP 18; TEMP 36.28068; O2SAT 99
[2023-10-14 16:00] VITALS: BP 120/87; PULSE 85; RESP 18; TEMP 36.28068; O2SAT 100
[2023-10-14 20:00] VITALS: BP 140/76; PULSE 86; RESP 20; TEMP 36.28068; O2SAT 95
[2023-10-15] VITALS: BP 136/82; PULSE 82; RESP 20; TEMP 36.28068; O2SAT 96
[2023-10-15 04:00] VITALS: BP 157/87; PULSE 75; RESP 20; TEMP 36.22512; O2SAT 99
[2023-10-15 08:00] VITALS: BP 141/85; PULSE 79; RESP 18; TEMP 36.44736; O2SAT 98
[2023-10-15] MEDS ORDERED: NITROGLYCERIN SPRAY/4.9GM CAN TL ONE (10:45)
[2023-10-15] MEDS ORDERED: IOHEXOL-350 100 ML BOTTLE ONE (11:04)
[2023-10-15 12:00] VITALS: BP 139/80; PULSE 80; RESP 18; TEMP 36.44736; O2SAT 97
[2023-10-15 16:00] VITALS: BP 131/85; PULSE 75; RESP 18; TEMP 36.114; TEMP 36.11400; O2SAT 98
[2023-10-15] MEDS ORDERED: NALOXONE HCL 0.4MG/ML VIAL IV PRN (16:15)
[2023-10-15] MEDS: HYDROCODONE/ACETAMINOPHEN 5/325MG TABLET PO PRN (16:31)
[2023-10-15 18:53] VITALS: BP 135/70; PULSE 79; TEMP 97.6; O2SAT 98
== END 2023-10-15 19:30 | disposition home or self-care (01) | DRG 281 ==
LOC: ER 19:00 → 5WST 23:04 → 7WST 10-13 16:20
PROVIDERS: ADMIT Internal Medicine; ATTEND Internal Medicine
DX: I21.4 Non-ST elevation (NSTEMI) myocardial infarction (principal); N39.0 Urinary tract infection, site not specified; F14.90 Cocaine use, unspecified, uncomplicated; F17.210 Nicotine dependence, cigarettes, uncomplicated; E78.00 Pure hypercholesterolemia, unspecified; I11.0 Hypertensive heart disease with heart failure; D53.9 Nutritional anemia, unspecified; I45.10 Unspecified right bundle-branch block; N40.0 Benign prostatic hyperplasia without lower urinary tract symptoms; E11.9 Type 2 diabetes mellitus without complications; Z20.822 Contact with and (suspected) exposure to COVID-19; F19.90 Other psychoactive substance use, unspecified, uncomplicated; I25.10 Atherosclerotic heart disease of native coronary artery without angina pectoris; I50.9 Heart failure, unspecified; Z79.82 Long term (current) use of aspirin; Z79.84 Long term (current) use of oral hypoglycemic drugs; Z79.899 Other long term (current) drug therapy; Z82.49 Family history of ischemic heart disease and other diseases of the circulatory system; Z90.49 Acquired absence of other specified parts of digestive tract; Z91.81 History of falling; Z88.8 Allergy status to other drugs, medicaments and biological substances
CPT/HCPCS: 36415; 71045; 75571; 80048; 80053; 80061; 80305; 80320; 81003; 82550; 82553; 82607; 82746; 83036; 83540; 83550; 83735; 83880; 84100; 84443; 84484; 85025; 85027; 87426; 93005; 93306; 93970; 99285; J0696; J1650; Q9967; G0480

== ENCOUNTER 2024-05-17 08:51 | Emergency (ER) | payer MEDICARE ==
[~2024-05-17] VITALS: Ht 177.8 cm; Wt 95.0 kg
[~2024-05-17 08:51] MED LIST changes: -TAMS-11 PO; +TAMS-54 PO
[2024-05-17 09:01] VITALS: O2SAT 99
[2024-05-17 09:06] VITALS: BP 155/86; PULSE 67; RESP 16; TEMP 36.7; O2SAT 100
== END 2024-05-17 10:52 | disposition home or self-care (01) ==
LOC: ER 08:51
DX: H81.399 Other peripheral vertigo, unspecified ear (principal); E78.00 Pure hypercholesterolemia, unspecified; I11.0 Hypertensive heart disease with heart failure; I50.9 Heart failure, unspecified; Z79.82 Long term (current) use of aspirin; Z79.899 Other long term (current) drug therapy; Z87.19 Personal history of other diseases of the digestive system; Z90.49 Acquired absence of other specified parts of digestive tract
CPT/HCPCS: 99281

== ENCOUNTER 2024-07-17 15:02 | Emergency (ER) | payer MEDICARE ==
[~2024-07-17] VITALS: Ht 180.3 cm; Wt 99.0 kg
[2024-07-17 15:11] VITALS: TEMP 36.8; O2SAT 97
[2024-07-17] MEDS ORDERED: ACET-2708 MT (16:29)
[2024-07-17] MEDS ORDERED: T3 PO (16:42)
[2024-07-17 17:08] VITALS: BP 187/110; PULSE 75; RESP 16; O2SAT 96
== END 2024-07-17 17:13 | disposition home or self-care (01) ==
LOC: ER 15:02
DX: S63.501A Unspecified sprain of right wrist, initial encounter (principal); S40.011A Contusion of right shoulder, initial encounter; E78.00 Pure hypercholesterolemia, unspecified; I10 Essential (primary) hypertension; Z90.49 Acquired absence of other specified parts of digestive tract; Z79.899 Other long term (current) drug therapy; Z79.82 Long term (current) use of aspirin; V89.2XXA Person injured in unspecified motor-vehicle accident, traffic, initial encounter; Y93.89 Activity, other specified; Y92.89 Other specified places as the place of occurrence of the external cause; Y99.8 Other external cause status
CPT/HCPCS: 73030; 73110; 99283